=== PATIENT | male | born 1975 | race Caucasian/White ===

== ENCOUNTER 2023-11-04 23:08 | Emergency (ER) | payer SELFPAY ==
[2023-11-04 23:09] VITALS: BMI 23.9
[2023-11-04 23:11] VITALS: BP 100/73
[2023-11-05] VITALS: BP 110/71
[2023-11-05 00:36] LABS: % Basophils 0.4 % (0-2); % Eosinophils 2.5 % (0-6); % Immature Granulocytes 0.5 % (0-0.5); % Lymphocytes 26.4 % (20.5-51.1); % Neutrophils 63.2 % (42.2-75.2); Absolute Eosinophils 0.3 10^3/uL (0-0.7); Absolute Immature Granulocytes 0.1 10^3/uL (0-0.05); Absolute Lymphocytes 2.6 10^3/uL (1.2-3.4); Absolute Monocytes 0.7 10^3/uL (0.1-0.6); Absolute Neutrophils 6.3 10^3/uL (1.4-6.5); Hematocrit 40.6 % (39.0-52.0); Hemoglobin 13.7 g/dL (13.0-18.0); Mean Corp Hgb Conc. 33.7 g/dL (33.0-37.0); Mean Corpuscular Hgb 28.5 pg (27.0-31.0); Mean Corpuscular Volume 84.6 fL (80.0-94.0); Mean Platelet Volume 9.8 fL (7.4-10.4); Nucleated Red Blood Cells % 0 % (-); Platelet Count 217 10^3/uL (130-400); Red Cell Dist. Width 13.9 % (11.5-14.5)
[2023-11-05 01:00] LABS: ALT (SGPT) 13 U/L (0-50); AST (SGOT) 22 U/L (17-59); Albumin 4.1 g/dl (3.5-5.0); Alkaline Phosphatase 80 U/L (38-126); Blood Urea Nitrogen 16 mg/dl (9-20); Calcium 9.2 mg/dl (8.4-10.2); Carbon Dioxide 30 mmol/L (22-30); Chloride 101 mmol/L (98-107); Estimated Creatinine Clearance 100 ml/min; Glucose 93 mg/dl (70-99); Potassium 4.6 mmol/L (3.5-5.1); Sodium 137 mmol/L (135-145); Total Bilirubin 0.5 mg/dl (0.2-1.3); Total Protein 7.4 g/dl (6.3-8.2); eGFR > 60.00
[2023-11-05 01:13] LABS: Acetaminophen < 10 ug/ml (10-30); Salicylate < 1.0 mg/dl (2.0-20.0)
[2023-11-05 01:14] LABS: Alcohol None Detected
--- NOTE | 2023-11-05 01:29 | ED.GENMED ---
History of Present Illness
General
Chief Complaint: Crisis Evaluation
Time Seen by Provider: 11/04/23 23:49
History of Present Illness
History of Present Illness:
48-year-old male with history of depression presenting to the emergency department from crisis for medical clearance. Patient was at the crisis center for his depression. Reported that he was feeling dizzy, sent to the emergency department for
further evaluation. On arrival, patient denies any suicidal or homicidal ideations. Reports some depression, and some auditory hallucinations. Does report some dizziness, chest pain or difficulty breathing. Denies abdominal pain, vomiting,
changes in stool. Denies any recent fever. Denies cough. Denies additional acute medical complaints.
Past History
Past History
ED Past Medical History: Psychiatric (Schizophrenia) and Other (Homelessness)
Social History
Tobacco: Other (Unknown)
Alcohol: None
Drug: None
Personal: Single
Living: homeless
Employment: Not employed
Family History
Family History: Unable to obtain
Phy Exam
Physical Exam
Physical Exam:
General: Well-appearing, no clinical signs of dehydration, nontoxic and in no acute distress
HEENT: protecting airway
Neck: appears supple
CV: Normal heart rate, regular rhythm, no evidence of cyanosis
Resp: No accessory muscle use, no increased work of breathing, lungs clear to auscultation bilaterally
Abd: Soft and non-distended, no tenderness to palpation
Extremities: No deformities, no swelling
Neuro: alert, no focal neurologic deficit
: deferred
Rectal: deferred
Psych: Normal affect
Skin: Intact
Course
Orders/Labs/Results
Orders:
Orders
11/05/23 00:23
Acetaminophen Urgent
Alcohol Urgent
Complete Blood Count/With Diff Urgent
Comprehensive Metabolic Panel Urgent
Salicylate Urgent
11/05/23 01:08
Electrocardiogram (*1) Urgent
Reason for Study: Vertigo / Dizzy
Abnormal Lab Results
11/05/23
00:23
Abs Immat Gran (auto) 0.1 H 10^3/uL
(0-0.05)
Absolute Monos (auto) 0.7 H 10^3/uL
(0.1-0.6)
Salicylates < 1.0 L mg/dl
(2.0-20.0)
Acetaminophen < 10 L ug/ml
(10-30)
11/05/23 00:23
11/05/23 00:23
Vital Signs
Initial and Last Documented VS:
Initial Vital Signs
Temp Pulse Resp BP Pulse Ox
98.0 F 68 20 100/73 97
11/04/23 23:11 11/04/23 23:11 11/04/23 23:11 11/04/23 23:11 11/04/23 23:11
Last Documented Vital Signs
Temp Pulse Resp BP Pulse Ox
98.0 F 62 18 110/71 96
11/04/23 23:11 11/05/23 00:00 11/05/23 00:00 11/05/23 00:00 11/05/23 00:00
MDM/Problems Addressed
MDM/Problems Addressed:
48-year-old male with history of depression presenting for dizziness and depression. Vital signs are normal.
On exam, patient well-appearing, no acute distress or discomfort. Patient denies any present suicidal or homicidal ideations. Unremarkable cardiac and pulmonary exam. No focal neurologic deficits. Patient refusing EKG. Denies any present
dizziness. From a psychiatric perspective, denies suicidal or homicidal ideations. He does not appear to be acutely psychotic. No indication for 302, does not appear to be a threat to himself or others. Will screen with laboratory analysis.
01:00 - Did discuss with crisis, do not feel patient needs inpatient therapy at this time. Labs unremarkable. Remains hemodynamically stable. Feel stable for discharge. Return precautions discussed and patient verbalized understand
*Critical Care Note
Total Time (30-74mins, 75-104mins- exclusive of procedures): Not Applicable
ED Attending Note
-
Portions of this chart may have been created with voice recognition software.� Occasional wrong word or��sound alike� substitutions may have occurred due to the inherent limitations of voice recognition software.
Discharge Plan
Departure
Patient Disposition: Home (Routine Discharge)
Date of Disposition: 11/05/23
Time of Disposition: 01:25
Patient with high blood pressure during this ER visit?: No
Condition: Good
Discharge Problem:
Encounter for medical screening examination, Depression
Instructions: Depression, Adult (DC)
Prescriptions:
No Action
Unobtainable
0
Referrals:
[facility] [Active] -
UNKNOWN - PT DOES,NOT KNOW [Family Provider] -
Activity Restrictions/Additional Instructions:
You were seen in the emergency department for depression
Please follow-up closely with your primary care physician and your psychiatrist.
Return to the emergency department for any worsening of your symptoms, any thoughts of wanting to hurt yourself or others, or any development of chest pain, difficulty breathing, abdominal pain with persistent vomiting and inability to tolerate food
or liquid by mouth (concern for dehydration), weakness, headache or confusion, fever greater than 100.4, or any additional symptoms that are concerning to you.
Thank you for choosing [facility].
Interventions
Interventions:
*Risk Screen - Suicide Last Done: 11/04/23 23:17
*General Assessment Last Done: 11/04/23 23:17
*Neglect/Abuse Screening Last Done: 11/04/23 23:17
ED- Fall Risk Assessment Last Done: 11/04/23 23:17
*ED COVID-19 Vaccine History Last Done: 11/05/23 02:03
*Nursing Disposition Last Done: 11/05/23 02:03
ED-Psychological Assessment Last Done: 11/05/23 00:31
Discharge Date and Time
Discharge Date/Time: 11/05/23 01:30
Print Language: [id number]
== END 2023-11-05 01:30 | disposition home or self-care (01) ==
LOC: EMR 23:08
PROVIDERS: EMERGENCY PHYSICIAN Student in an Organized Health Care Education/Training Program
DX: F32.A Depression, unspecified (principal); Z02.79 Encounter for issue of other medical certificate; R42 Dizziness and giddiness; R44.0 Auditory hallucinations; F20.9 Schizophrenia, unspecified; Z59.00 Homelessness unspecified
CPT/HCPCS: 99283; 80053; 80143; 80179; 82077; 85025